=== PATIENT | male | born 1945 | race Caucasian/White ===

== ENCOUNTER 2016-06-05 11:25 | Inpatient (IN) | payer MEDICARE, OTHER ==
[2016-06-02 15:43] LABS: HEMATOCRIT 48.7 % (38.0-50.0); HEMOGLOBIN 16.5 gm/dL (13.0-16.0); MEAN CELL VOLUME 97.9 FL (83-96); MEAN CORPUSCULAR HEMOGLOBIN 33.2 PG (28-34); MEAN CORPUSCULAR HGB CONC 33.9 g/dL (30-36); MEAN PLATELET VOLUME 7.3 FL (6.5-11.5); RED BLOOD COUNT 4.97 X10e (3.90-5.60); RED CELL DISTRIBUTION WIDTH 12.4 % (11.0-15.5); WHITE BLOOD COUNT 1.5 X10e3 (4.0-10.5)
[2016-06-02 15:54] LABS: ALBUMIN SERUM 2.5 g/dL (3.5-5.0); ALKALINE PHOSPHATASE 74 U/L (32-92); ALT (SGPT) 47 U/L (10-40); AMYLASE 51 U/L (0-46); AST (SGOT) 28 U/L (10-42); BILIRUBIN,TOTAL 1.1 mg/dL (0.2-2.0); BLOOD UREA NITROGEN 33 mg/dL (9-23); CALCIUM SERUM 7.6 mg/dL (8.4-10.2); CARBON DIOXIDE 20 mmol/L (22-31); CHLORIDE 106 mmol/L (100-111); CPK (CREATINE PHOSPHOKINASE) 25 IU/L (36-174); GLOM FILT RATE Estimated ABOVE60 mL/min (>60); GLUCOSE FASTING 147 mg/dL (70-110); LIPASE 33 U/L (22-51); POTASSIUM 4.5 mmol/L (3.5-5.1); SODIUM 134 mmol/L (135-145)
[2016-06-03 02:00] LABS: URINE BILIRUBIN NEG (NEG); URINE BLOOD NEG (NEG); URINE GLUCOSE 300 MG/DL (NORM); URINE KETONE NEG (NEG); URINE LEUKOCYTE ESTERASE NEG (NEG); URINE NITRATE NEG (NEG); URINE PROTEIN 1+ (NEG); URINE UROBILINOGEN NORM (NORM)
[2016-06-03 02:03] LABS: URINE APPEARANCE SL CLOUDY; URINE COLOR YELLOW
[2016-06-03 02:11] LABS: URINE SQUAMOUS EPITHELIAL CELL FEW /[HPF]
[2016-06-03 02:12] LABS: CULTURE INDICATED? NO
[2016-06-03 03:57] LABS: HEMATOCRIT 45.1 % (38.0-50.0); HEMOGLOBIN 15.2 gm/dL (13.0-16.0); MEAN CELL VOLUME 98.5 FL (83-96); MEAN CORPUSCULAR HEMOGLOBIN 33.1 PG (28-34); MEAN CORPUSCULAR HGB CONC 33.6 g/dL (30-36); MEAN PLATELET VOLUME 7.5 FL (6.5-11.5); RED BLOOD COUNT 4.58 X10e (3.90-5.60); RED CELL DISTRIBUTION WIDTH 12.5 % (11.0-15.5); WHITE BLOOD COUNT 1.9 X10e3 (4.0-10.5)
[2016-06-03 04:09] LABS: ALBUMIN SERUM 2.4 g/dL (3.5-5.0); ALKALINE PHOSPHATASE 60 U/L (32-92); ALT (SGPT) 39 U/L (10-40); AST (SGOT) 22 U/L (10-42); BILIRUBIN,TOTAL 0.9 mg/dL (0.2-2.0); BLOOD UREA NITROGEN 31 mg/dL (9-23); BUN/CREATININE RATIO 34.44; CALCIUM SERUM 7.1 mg/dL (8.4-10.2); CARBON DIOXIDE 25 mmol/L (22-31); CHLORIDE 108 mmol/L (100-111); CREATININE SERUM 0.9 mg/dL (0.6-1.4); GLOM FILT RATE Estimated ABOVE60 mL/min (>60); GLUCOSE FASTING 151 mg/dL (70-110); POTASSIUM 4.6 mmol/L (3.5-5.1); PROTEIN TOTAL SERUM 4.6 g/dL (6.0-8.3); SODIUM 132 mmol/L (135-145)
[2016-06-04 06:54] LABS: HEMATOCRIT 42.6 % (38.0-50.0); HEMOGLOBIN 14.4 gm/dL (13.0-16.0); MEAN CELL VOLUME 98.2 FL (83-96); MEAN CORPUSCULAR HEMOGLOBIN 33.1 PG (28-34); MEAN CORPUSCULAR HGB CONC 33.8 g/dL (30-36); MEAN PLATELET VOLUME 7.5 FL (6.5-11.5); RED BLOOD COUNT 4.34 X10e (3.90-5.60); RED CELL DISTRIBUTION WIDTH 12.3 % (11.0-15.5); WHITE BLOOD COUNT 1.3 X10e3 (4.0-10.5)
[2016-06-04 07:38] LABS: BLOOD UREA NITROGEN 25 mg/dL (9-23); BUN/CREATININE RATIO 35.71; CALCIUM SERUM 7.3 mg/dL (8.4-10.2); CARBON DIOXIDE 23 mmol/L (22-31); CHLORIDE 109 mmol/L (100-111); CREATININE SERUM 0.7 mg/dL (0.6-1.4); GLOM FILT RATE Estimated ABOVE60 mL/min (>60); GLUCOSE FASTING 115 mg/dL (70-110); MAGNESIUM 1.8 mg/dL (1.6-3.0); POTASSIUM 4.1 mmol/L (3.5-5.1); SODIUM 137 mmol/L (135-145)
--- NOTE | ~2016-06-05 | CO ---
Unit #: [id number] #: [id number] Patient: MARYCHUY EDMONDS [id number] [address] [place], [place] [address] [id number] I MR#: [id number] NAME: MARYCHUY EDMONDS ROOM: 341 Age: 70 Sex: M Admission Date: 06/02/2016 : 1945 Attending Physician: Ryan Choi M.D. Consultation Date: 06/03/2016 CONSULTATION REPORT REASON FOR CONSULTATION Locally advanced pancreatic cancer, please evaluate. HISTORY OF PRESENT ILLNESS Mr. Margaret Edmonsd is a 70-year-old with a history of locally advanced pancreatic cancer, who is undergoing neoadjuvant chemotherapy with FOLFIRINOX prior to surgery. He had a second cycle of chemotherapy last week and tells me that for the last 4 or 5 days, he has been very weak and nauseous with several episodes of vomiting along with some diarrhea. He was seen in the office on 06/02/2016 and felt so weak and dehydrated, requested hospitalization. He received IV fluids in the office prior to his admission as a direct admit. Today, he tells me that he feels no better, continues to have watery diarrhea along with recurrent nausea and vomiting without significant relief with Zofran. Yesterday, he had no trouble swallowing, but today, he tells me that even swallowing Jell-O has been difficult. PAST MEDICAL HISTORY Hypertension, hyperlipidemia, locally advanced pancreatic cancer diagnosed on 03/29/2016, and he presents with painless jaundice. ERCP and stent were done followed by an EUS with biopsies. He was found to have an 18.7 x 16.0 cm mass in the head of the pancreas with loss of intervening planes between the mass and the portal vein and has since undergone 2 cycles of chemotherapy with FOLFIRINOX. Positive history of appendectomy at age 13, finger surgery on right index finger. FAMILY HISTORY Lung cancer in father. SOCIAL HISTORY Smokes a pack a day with a 20 pack year history of smoking. Single. He has one daughter with whom he does not keep in touch. Lives with his brother. REVIEW OF SYSTEMS 14-point review of systems taken. CONSTITUTIONAL: Fatigue and weakness. No appetite. EYES: Negative. EARS, NOSE, MOUTH AND THROAT: Negative. CARDIOVASCULAR: Negative. RESPIRATORY: Negative. GASTROINTESTINAL: Nausea, vomiting, diarrhea. MUSCULOSKELETAL: Weakness. ALLERGY/LYMPHATIC: Negative. Unit #: [id number] #: [id number] Patient: MARYCHUY EDMONDS SKIN: Negative. NEUROLOGIC: Negative. PSYCHIATRIC: Negative. PHYSICAL EXAMINATION GENERAL: He is an elderly man who looks tired and weak. He is awake, alert, and oriented x3, but is in moderate distress secondary to nausea and vomiting. VITAL SIGNS: Temperature 97.9, pulse rate is 60, respiratory rate is 18, blood pressure 141/73, pulse ox is 100% on room air. HEENT: Shows pupils are equal and reactive well to light. Mucous membranes are dry. NECK: Without adenopathy, JVD, or thyromegaly. CARDIOVASCULAR: First and second heart sounds are heard and are regular without murmurs, gallops, or rubs. LUNGS: Chest expansion is symmetric and bilaterally clear entry with normal breath sounds. ABDOMEN: Soft and nontender. Bowel sounds are active. No organomegaly. EXTREMITIES: Warm and good pulses. No edema, cyanosis, or clubbing. NEUROLOGIC: He is awake, alert, and oriented x3 without any focal findings. PSYCHIATRIC: Anxious and worried. SKIN: Negative. DIAGNOSTIC STUDIES LABORATORY RESULTS: CPK is 28. Troponin is less than 0.03. Urine culture is cloudy with leukocyte esterase being negative. CBC has a white count of 1.9, hemoglobin is 15.2, platelet counts 50,000. His complete metabolic panel shows a BUN of 31, creatinine is 0.9, albumin is 2.4. ASSESSMENT/PLAN Margaret Edmonds is a 70-year-old with a history of locally advanced pancreatic cancer, who has undergone 2 cycles of chemotherapy with FOLFIRINOX prior to surgery. He is admitted with nausea, vomiting, diarrhea, dehydration, and generalized weakness. In addition, he is pancytopenic with neutropenia and thrombocytopenia, likely from his recent chemotherapy. I had an extensive discussion with Mr. Edmonds who was reluctant to undergo further chemotherapy that he does require neoadjuvant chemotherapy to downsize this cancer before he can undergo a resection. Recommended switching his antiemetics and consultation with Dr. Jose A De Leon of GI to re-evaluate and possibly perform an upper endoscopy during this hospitalization. Discussed with Mr. Edmonds about starting him on Granix 480 mcg subcu once daily. We will discontinue if white count is more than 3500 with broad-spectrum antibiotics if he was to spike a fever. His thrombocytopenia will observed with transfusion support as necessary. He will also require replacement of his electrolytes. Thank you for allowing me to participate in his care and I will follow with you. Dictated by... Mello Raza/ambrocio TD: 06/04/2016 05:59 Unit #: [id number] #: [id number] Patient: MARYCHUY EDMONDS JOB #: [id number] CONSULTATION REPORT X Drew Escalera MD CONSULTATION REPORT
--- NOTE | ~2016-06-05 | CT2 ---
[facility] A Service of [facility] RADIOLOGY TEXT RESULTS PATIENT: MARYCHUY PARSONS LOCATION: C3A 341- : 46 UNIT #: [id number] AGE: [address]: Ryan Choi MD SEX: M ORDER DR: [id number] [facility] [address] [facility]. [place], [place] [address] [id number] I MR#: [id number] Acc #: [id number] NAME: MARYCHUY PARSONS : 1945 SEX: M STUDY DATE/TIME: 06/05/2016 15:58 UNIT: C3A PCU ROOM: 341 STUDY DESCRIPTION: CT Abd and Pelv W Cont Attending Physician: Ryan Choi M.D. Ordering Physician: Drew Escalera M.D. Primary Care Physician: Primary Care Physician No MEDICAL IMAGING REPORT This report is preliminary unless electronic signature is present EXAM CT of the abdomen and pelvis with IV contrast media HISTORY Nausea, vomiting and diarrhea for 3 days. Upper abdominal pain. TECHNIQUE Transaxial imaging of the abdomen and pelvis was obtained with IV contrast and compared directly to the patient's most recent scan of 03/27/2016. This CT examination was performed with one or more of the following radiation dose reduction techniques: automatic exposure control, adjustment of mA and/or kV according to patient size, and iterative reconstruction. FINDINGS Lung bases show some compressive atelectasis. The patient has developed perihepatic fluid. There is pneumobilia. The patient has a stent in the common duct. Gallbladder is decompressed. Spleen is of normal size. The adrenal gland on the right is normal. The left adrenal is not clearly seen. The right kidney appears normal and in normal position. 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 There is no hydronephrosis present. The patient has developed some small bowel wall thickening in the left upper quadrant. The patient has pronounced colon wall thickening involving the splenic flexure and descending colon. There is a small amount of free fluid in the right paracolic gutter and dependent pelvis. Bladder is unremarkable. CONCLUSION 1. Interim development of intraabdominal fluid. This is perihepatic, in the right paracolic gutter, and a small amount in the pelvis. 2. Interim placement of a biliary stent with pneumobilia and biliary STS. [facility] A Service of [facility] RADIOLOGY TEXT RESULTS PATIENT: MARYCHUY PARSONS LOCATION: A 341-01 : 46 UNIT #: [id number] AGE: [address]: Ryan Choi MD SEX: M ORDER DR: dilatation has improved significantly. Gallbladder distension has resolved. 3. 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 4. Thickened colon wall involving the splenic flexure and descending colon in its course. There are a few slightly thickened jejunal loops in the left upper quadrant as well likely reflecting colitis or enterocolitis. Dictated by... Jerod Coelho M.D. THIS IS AN ELECTRONICALLY VERIFIED REPORT Jerod Coelho M.D. at 06/08/2016 5:09 PM DONELL/wilma TD: 06/06/2016 06:56 JOB #: [id number] MEDICAL IMAGING REPORT Page 1 of 1 COPY
--- NOTE | ~2016-06-05 | EKG ---
PATIENT: MARYCHUY PARSONS UNIT #: [id number] Ventricular Rate: 83 BPM Atrial Rate: 83 BPM P-R Interval: 128 ms QRS Duration: 72 ms Q-T Interval: 386 ms QTC Calculation(Bezet): 453 ms P Casper: 22 degrees Calculated R Casper: -8 degrees Calculated T Casper: 51 degrees Diagnosis Line: Normal sinus rhythm with sinus arrhythmia Diagnosis Line: Normal ECG Diagnosis Line: When compared with ECG of 27-MAR-2016 10:25, Diagnosis Line: No significant change was found Diagnosis Line: Confirmed by SALVADOR BECKWITH MD ([id number]) on Diagnosis Line: 06/03/2016 11:25:57 AM INTERPRETING MD: TANG BHATIA
--- NOTE | ~2016-06-05 | CO ---
Unit #: [id number] #: [id number] Patient: MARYCHUY PARSONS [id number] [address] [address] [id number] I MR#: [id number] NAME: MARYCHUY PARSONS ROOM: 341 Age: 70 Sex: M Admission Date: 06/05/2016 : 1945 Attending Physician: Ryan Choi M.D. Primary Care Physician: No Primary Care Physician CONSULTATION REPORT REASON FOR CONSULTATION Urinary retention. HISTORY OF PRESENT ILLNESS The patient is a pleasant 70-year-old male with history of locally advanced pancreatic cancer, who is undergoing neoadjuvant chemotherapy. He was admitted with nausea, vomiting, diarrhea, and neutropenia. He is having urinary retention since his catheter was removed. He denies difficulty urinating before he was in the hospital. He denies previous history of urinary problems. He denies hematuria. He was started on Flomax this morning. He is currently being in and out catheterized. PAST MEDICAL HISTORY 1. Locally advanced pancreatic cancer, currently undergoing neoadjuvant chemotherapy. 2. Hypertension. 3. Hyperlipidemia. SOCIAL HISTORY Positive for tobacco. He lives with his brother. FAMILY HISTORY Positive for lung cancer. REVIEW OF SYSTEMS Positive for weak stream. Positive for limited mobility. Negative for hematuria. Negative for dysuria. Positive for urinary retention. PHYSICAL EXAMINATION GENERAL: Reveals a somewhat chronically ill appearing white male in no acute distress. VITAL SIGNS: Temperature 98, blood pressure 119/71, pulse 110, respirations 20. HEENT: Normocephalic and atraumatic. LUNGS: Patient is breathing comfortably. ABDOMEN: Soft, nontender, nondistended. GENITOURINARY: His penis is normal. His meatus is normal. RECTAL: His prostate and digital rectal exam is within normal limits. It is not significantly enlarged. There are no nodules. DIAGNOSTIC STUDIES LABORATORY: Creatinine 0.9. White blood cell count 9.9, hemoglobin 14.9. Urinalysis is nitrite negative, leukocyte esterase negative, and negative for blood. Unit #: [id number] #: [id number] Patient: MARYCHUY PARSONS ASSESSMENT AND PLAN Urinary retention: This is likely multifactorial and certainly his overall weakened state and immobility plays a role in this. I agree with the plan for Flomax. I would anchor a Avila catheter at this time and will plan a voiding trial as an outpatient in about one week. Dictated by... Mello Bauer/ashutosh TD: 06/09/2016 16:29 JOB #: [id number] CONSULTATION REPORT Page 1 of 1 X Get Wilcox MD X CONSULTATION REPORT
--- NOTE | ~2016-06-05 | DS ---
Unit #: [id number] #: [id number] Patient: MARYCHUY PARSONS [id number] [address] [address] [id number] I MR#: [id number] NAME: MARYCHUY PARSONS ROOM: 341 Age: 70 Sex: M Admission Date: 06/05/2016 : 1945 Discharge Date: 06/12/2016 Attending Physician: Ryan Choi M.D. Primary Care Physician: Harriett Primary Care Physician DISCHARGE SUMMARY CONSULTANTS Dr. Ecsalera. Dr. Jose A De Leon. Dr. Get Wilcox. ADMITTING DIAGNOSES 1. Dehydration. 2. History of pancreatic cancer on chemotherapy with neutropenia. 3. Hypertension. 4. Hyperlipidemia. 5. Chronic obstructive pulmonary disease. 6. Urinary retention, status post Avila catheter placement. HISTORY OF PRESENT ILLNESS The patient is a 70-year-old male with a past medical history of pancreatic cancer, hypertension, hyperlipidemia, chronic obstructive pulmonary disease and was admitted directly from Dr. Escalera's office on the . He was started on chemotherapy and developed nausea, vomiting and not feeling well. He was admitted as a direct admit. HOSPITAL COURSE In the hospital he was started on IV fluids. Initial workup showed him having neutropenia. He was started on (1) colony stimulating factor. His counts improved. Initially he was started on empiric antimicrobials because of neutropenia. Slowly his antibiotics were stopped. He had a urinary retention. Urology was consulted. They placed a Avila catheter and started him on Flomax. Today urology recommended to remove the Avila catheter and try a voiding trial. We are trying to attempt that. The patient was seen by physical therapy and occupational therapy. They recommended the patient requires rehab placement. I spoke at length with the patient and his brother. They do not want him to go to rehab. The patient does not want to go to rehab. He wants to go home. He says he has enough help at home and he wants to go home and follow up. Will discharge him home. We have requested him to follow up with oncology and urology as an outpatient. PHYSICAL EXAMINATION VITALS: On the day of discharge, temperature 98, pulse rate 107, respiratory rate 19, blood pressure 144/86. GENERAL: The patient is alert, oriented times three, lying in the bed in no acute distress. HEENT: Normocephalic, atraumatic. No icterus. Pupils equally round and reactive to light and accommodation. Extraocular movements intact. NECK: Supple. No jugular venous distension. Unit #: [id number] #: [id number] Patient: MARYCHUY PARSONS HEART: S1 and S2. Regular rate and rhythm. CHEST: Bilaterally equal entry. Clear to auscultation. ABDOMEN: Obese, soft, nontender. EXTREMITIES: No edema. Normal pulses. DISCHARGE MEDICATIONS 1. Flomax 0.4 mg daily. 2. Spiriva 18 mcg inhalation daily. 3. Lomotil 5 mg p.o. q.4 h. p.r.n. diarrhea. 4. Zofran 4 mg q.4 h. p.r.n. nausea and vomiting 5. Creon 12 mg p.o. t.i.d. 6. Lisinopril 20 mg daily. 7. Hydrocodone/Tylenol 7.5/325 mg 1 tablet p.o. daily. DISPOSITION He will be discharged home. Total time spent in his care 35 minutes. Dictated by... Mello Fermin TD: 06/12/2016 15:37 JOB #: [id number] DISCHARGE SUMMARY Page 1 of 1 X X DISCHARGE SUMMARY
--- NOTE | ~2016-06-05 | HP ---
Unit #: [id number] #: [id number] Patient: MARYCHUY PARSONS [id number] [address] [address] [id number] I MR#: [id number] NAME: MARYCHUY PARSONS ROOM: 341 Age: 70 Sex: M Admission Date: 06/02/2016 : 1945 Attending Physician: Debi Holley M.D. Primary Care Physician: Primary Care Physician No HISTORY AND PHYSICAL CHIEF COMPLAINT Dehydration. HISTORY OF PRESENT ILLNESS The patient is a 70-year-old male with past medical history of pancreatic cancer, hypertension, hyperlipidemia, COPD, who was a direct admit from Dr. Escalera's office for evaluation of the above. The patient states that he had chemotherapy on 05/26/2016. He states that the following day he started with nausea and diarrhea. He states that he has had no vomiting within the past 24 hours. He has had about 4 to 5 bouts of nonbloody diarrhea within the past 24 hours. He states that his abdomen is "sore" from not eating. He also has noted decrease in his urine output. He was seen in Dr. Escalera's office today and sent to [facility] for admission and further treatment. PAST MEDICAL HISTORY 1. Admission to [facility] 03/28/2016 for biliary obstruction concerning for possible stricture versus mass. He underwent EGD and ERCP during that admission. Pathology report from common bile duct brushings showed atypical cells. He is currently receiving chemotherapy for pancreatic cancer. This was his second treatment (05/26/2016) Apparently, 14 treatments are planned. 2. Hypertension. 3. Hyperlipidemia. 4. History of myocardial infarction. The patient denies ever being hospitalized for the myocardial infarction. He has never had a cardiac catheterization. 5. COPD, not on home oxygen. PAST SURGICAL HISTORY 1. Port placement. 2. EGD. 3. ERCP. 4. Appendectomy. ALLERGIES No known allergies. HOME MEDICATIONS Include: 1. Meloxicam 15 mg daily. 2. Lisinopril 20 mg daily. 3. Ventolin one puff inhaled q.4 h. p.r.n. Unit #: [id number] #: [id number] Patient: MARYCHUY PARSONS 4. Spiriva inhaled daily. SOCIAL HISTORY The patient smokes cigars. He lives alone. He reports occasional alcohol use. 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 FAMILY HISTORY Notable for his father having liver and lung cancer. REVIEW OF SYSTEMS A complete review of systems is negative except as indicated in the HPI. The patient states that he has lost about 15 pounds over the past week. PHYSICAL EXAMINATION VITAL SIGNS: Temperature 97.6, pulse 79, respirations 18, blood pressure 141/86, oxygen saturation 100% on room air. GENERAL: The patient is a male who is awake and alert in no acute distress. HEENT: Head is atraumatic. Mucous membranes are dry. NECK: Supple. Trachea is midline. LUNGS: Clear to auscultation bilaterally with no increased work of breathing. HEART: Regular rate and rhythm. ABDOMEN: Soft, nontender. Bowel sounds present in all four quadrants. EXTREMITIES: Nontender with no pedal edema. NEUROLOGIC: Patient is awake and alert. He follows commands. PSYCHIATRIC: Mood and affect are normal. Patient is cooperative. SKIN OF EXAMINED AREAS: Warm and dry. DIAGNOSTIC STUDIES Pending. ASSESSMENT The patient is a 70-year-old male with: 1. Dehydration. 2. Diarrhea. 3. History of pancreatic cancer with second chemotherapy treatment being 05/26/2016. He is followed by Dr. Escalera. 4. Hypertension. 5. Hyperlipidemia. 6. Chronic obstructive pulmonary disease. 7. Tobacco abuse. PLAN 1. Admit for observation to intermediate level. 2. Advance to clear liquids as tolerated. 3. Normal saline at 125 mL per hour. 4. Check EKG and cardiac enzymes. 5. Check labs. 6. Urinalysis. 7. Stool studies including ova and parasites, C difficile, culture and sensitivity. 8. P.r.n. Zofran. 9. Repeat labs in the morning. 10. SCDs for DVT prophylaxis. 11. Consult Dr. Escalera regarding pancreatic cancer. 12. Additional workup and consultants based on above. Unit #: [id number] #: [id number] Patient: MARYCHUY PARSONS Dictated by Debi Holley M.D. Massimo TD: 06/02/2016 16:58 JOB #: [id number] HISTORY AND PHYSICAL X Debi Holley MD HISTORY AND PHYSICAL
[2016-06-05 07:00] LABS: HEMOGLOBIN 13.5 gm/dL (13.0-16.0); MEAN CELL VOLUME 97.6 FL (83-96); MEAN CORPUSCULAR HEMOGLOBIN 32.9 PG (28-34); MEAN CORPUSCULAR HGB CONC 33.7 g/dL (30-36); MEAN PLATELET VOLUME 8.6 FL (6.5-11.5); RED BLOOD COUNT 4.1 X10e (3.90-5.60); RED CELL DISTRIBUTION WIDTH 12.4 % (11.0-15.5); WHITE BLOOD COUNT 0.9 X10e3 (4.0-10.5)
[2016-06-05 07:31] LABS: BLOOD UREA NITROGEN 23 mg/dL (9-23); BUN/CREATININE RATIO 32.85; CALCIUM SERUM 7.3 mg/dL (8.4-10.2); CARBON DIOXIDE 22 mmol/L (22-31); CHLORIDE 109 mmol/L (100-111); CREATININE SERUM 0.7 mg/dL (0.6-1.4); GLOM FILT RATE Estimated ABOVE60 mL/min (>60); GLUCOSE FASTING 107 mg/dL (70-110); MAGNESIUM 2.2 mg/dL (1.6-3.0); POTASSIUM 3.8 mmol/L (3.5-5.1); SODIUM 134 mmol/L (135-145)
[~2016-06-05 11:25] MED LIST: ALBUTEROL17 GM INH; LISINOPRIL-HCTZ1 T14 PO; LISINOPRIL20 MG PO; MELOXICAM15 MG PO; SPIRIVA18 MCG INH
[2016-06-06 07:50] LABS: HEMATOCRIT 39.1 % (38.0-50.0); HEMOGLOBIN 13.2 gm/dL (13.0-16.0); MEAN CELL VOLUME 98.4 FL (83-96); MEAN CORPUSCULAR HEMOGLOBIN 33.2 PG (28-34); MEAN CORPUSCULAR HGB CONC 33.7 g/dL (30-36); MEAN PLATELET VOLUME 8.2 FL (6.5-11.5); RED BLOOD COUNT 3.98 X10e (3.90-5.60); RED CELL DISTRIBUTION WIDTH 12.5 % (11.0-15.5); WHITE BLOOD COUNT 0.8 X10e3 (4.0-10.5)
[2016-06-07 09:33] LABS: HEMATOCRIT 39.8 % (38.0-50.0); HEMOGLOBIN 13.4 gm/dL (13.0-16.0); MEAN CELL VOLUME 98.4 FL (83-96); MEAN CORPUSCULAR HEMOGLOBIN 33.1 PG (28-34); MEAN CORPUSCULAR HGB CONC 33.7 g/dL (30-36); RED BLOOD COUNT 4.05 X10e (3.90-5.60); RED CELL DISTRIBUTION WIDTH 12.5 % (11.0-15.5)
[2016-06-07 09:54] LABS: ALBUMIN SERUM 1.7 g/dL (3.5-5.0); ALKALINE PHOSPHATASE 48 U/L (32-92); ALT (SGPT) 20 U/L (10-40); AST (SGOT) 15 U/L (10-42); BILIRUBIN,TOTAL 0.7 mg/dL (0.2-2.0); BLOOD UREA NITROGEN 25 mg/dL (9-23); BUN/CREATININE RATIO 31.25; CALCIUM SERUM 6.9 mg/dL (8.4-10.2); CARBON DIOXIDE 21 mmol/L (22-31); CHLORIDE 114 mmol/L (100-111); CREATININE SERUM 0.8 mg/dL (0.6-1.4); GLOM FILT RATE Estimated ABOVE60 mL/min (>60); GLUCOSE FASTING 102 mg/dL (70-110); POTASSIUM 3.3 mmol/L (3.5-5.1); PROTEIN TOTAL SERUM 4.6 g/dL (6.0-8.3); SODIUM 138 mmol/L (135-145)
[2016-06-08 08:46] LABS: HEMATOCRIT 40.4 % (38.0-50.0); HEMOGLOBIN 13.5 gm/dL (13.0-16.0); MEAN CELL VOLUME 99.7 FL (83-96); MEAN CORPUSCULAR HEMOGLOBIN 33.2 PG (28-34); MEAN CORPUSCULAR HGB CONC 33.3 g/dL (30-36); MEAN PLATELET VOLUME 8.4 FL (6.5-11.5); RED BLOOD COUNT 4.05 X10e (3.90-5.60); RED CELL DISTRIBUTION WIDTH 12.6 % (11.0-15.5); WHITE BLOOD COUNT 3.8 X10e3 (4.0-10.5)
[2016-06-08 09:14] LABS: BLOOD UREA NITROGEN 25 mg/dL (9-23); BUN/CREATININE RATIO 31.25; CALCIUM SERUM 7.2 mg/dL (8.4-10.2); CARBON DIOXIDE 21 mmol/L (22-31); CHLORIDE 115 mmol/L (100-111); CREATININE SERUM 0.8 mg/dL (0.6-1.4); GLOM FILT RATE Estimated ABOVE60 mL/min (>60); GLUCOSE FASTING 87 mg/dL (70-110); POTASSIUM 3.5 mmol/L (3.5-5.1); SODIUM 141 mmol/L (135-145)
[2016-06-09 05:47] LABS: HEMATOCRIT 45.1 % (38.0-50.0); HEMOGLOBIN 14.9 gm/dL (13.0-16.0); MEAN CELL VOLUME 100.7 FL (83-96); MEAN CORPUSCULAR HEMOGLOBIN 33.4 PG (28-34); MEAN CORPUSCULAR HGB CONC 33.1 g/dL (30-36); MEAN PLATELET VOLUME 8.7 FL (6.5-11.5); RED BLOOD COUNT 4.48 X10e (3.90-5.60); RED CELL DISTRIBUTION WIDTH 12.8 % (11.0-15.5)
[2016-06-09 05:48] LABS: WHITE BLOOD COUNT 9.9 X10e3 (4.0-10.5)
[2016-06-09 05:58] LABS: BLOOD UREA NITROGEN 31 mg/dL (9-23); BUN/CREATININE RATIO 34.44; CALCIUM SERUM 7.4 mg/dL (8.4-10.2); CARBON DIOXIDE 18 mmol/L (22-31); CHLORIDE 111 mmol/L (100-111); CREATININE SERUM 0.9 mg/dL (0.6-1.4); GLOM FILT RATE Estimated ABOVE60 mL/min (>60); GLUCOSE FASTING 107 mg/dL (70-110); POTASSIUM 3.8 mmol/L (3.5-5.1); SODIUM 139 mmol/L (135-145)
[2016-06-10 10:21] LABS: HEMATOCRIT 40.9 % (38.0-50.0); HEMOGLOBIN 13.4 gm/dL (13.0-16.0); MEAN CORPUSCULAR HEMOGLOBIN 33.1 PG (28-34); MEAN CORPUSCULAR HGB CONC 32.7 g/dL (30-36); MEAN PLATELET VOLUME 8.5 FL (6.5-11.5); RED BLOOD COUNT 4.05 X10e (3.90-5.60); RED CELL DISTRIBUTION WIDTH 13.1 % (11.0-15.5); WHITE BLOOD COUNT 14.3 X10e3 (4.0-10.5)
[2016-06-10 10:55] LABS: BLOOD UREA NITROGEN 34 mg/dL (9-23); CALCIUM SERUM 7.4 mg/dL (8.4-10.2); CARBON DIOXIDE 15 mmol/L (22-31); CHLORIDE 116 mmol/L (100-111); CREATININE SERUM 0.8 mg/dL (0.6-1.4); GLOM FILT RATE Estimated ABOVE60 mL/min (>60); GLUCOSE FASTING 114 mg/dL (70-110); SODIUM 139 mmol/L (135-145)
[2016-06-11 09:16] LABS: BASOPHIL% 0.3 % (0-2.5); EOSINOPHIL% 0.1 % (0.0-7.0); HEMATOCRIT 39.9 % (38.0-50.0); HEMOGLOBIN 13.1 gm/dL (13.0-16.0); LYMPHOCYTE# 1.9 X10e3 (1.0-3.5); LYMPHOCYTE% 12.2 % (17.0-45.0); MEAN CELL VOLUME 100.4 FL (83-96); MEAN CORPUSCULAR HGB CONC 32.8 g/dL (30-36); MEAN PLATELET VOLUME 8.8 FL (6.5-11.5); MONOCYTE% 6.7 % (3.0-12.0); NEUTROPHIL# 12.7 X10e3 (1.5-7.1); NEUTROPHIL% 80.7 % (40-75); RED BLOOD COUNT 3.98 X10e (3.90-5.60); RED CELL DISTRIBUTION WIDTH 12.9 % (11.0-15.5); WHITE BLOOD COUNT 15.7 X10e3 (4.0-10.5)
[2016-06-11 09:20] LABS: PLATELET COUNT 93 X10e3 (140-420)
[2016-06-11 09:21] LABS: DIFF IND YES
[2016-06-11 10:09] LABS: ANISOCYTOSIS SL; NUCLEATED RED BLOOD CELL 3 /100 (0); PLATELET ESTIMATE DECREASED (NORMAL); POLYCHROMASIA SL
[2016-06-11 10:13] LABS: BUN/CREATININE RATIO 38.75; CALCIUM SERUM 7.4 mg/dL (8.4-10.2); CREATININE SERUM 0.8 mg/dL (0.6-1.4); GLOM FILT RATE Estimated 91.2 mL/min (>60); POTASSIUM 3.3 mmol/L (3.5-5.1)
[2016-06-12 08:42] LABS: BUN/CREATININE RATIO 32.5; CALCIUM SERUM 7.4 mg/dL (8.4-10.2); CREATININE SERUM 0.8 mg/dL (0.6-1.4); GLOM FILT RATE Estimated 91.2 mL/min (>60); POTASSIUM 3.6 mmol/L (3.5-5.1)
[2016-06-12] MEDS ORDERED: FLOMAX0.4 M1 PO (14:06)
[2016-06-12] MEDS ORDERED: LOMOTIL WHITE2.5 MG PO (14:07)
[2016-06-12] MEDS ORDERED: LOMOTIL WHITE2.5 M1 PO (14:07)
[2016-06-12] MEDS ORDERED: CREON DR 12,001 EAC1 PO (14:08)
[2016-06-12] MEDS ORDERED: ZOFRAN PO (14:08)
[2016-06-12] MEDS ORDERED: HYDROCODON-ACE1 EAC9 PO (14:09)
== END 2016-06-12 17:17 | disposition home health service (06) | DRG 809 ==
LOC: C3A PCU 11:25
PROVIDERS: Family Medicine; Internal Medicine; Internal Medicine Hematology & Oncology
PROC: 05H533Z Insertion of Infusion Device into Right Subclavian Vein, Percutaneous Approach (ICD-10-PCS; principal; 2016-06-05)
PROC: B546ZZA Ultrasonography of Right Subclavian Vein, Guidance (ICD-10-PCS; 2016-06-05)
DX: D70.1 Agranulocytosis secondary to cancer chemotherapy (principal); C25.9 Malignant neoplasm of pancreas, unspecified; D69.59 Other secondary thrombocytopenia; J44.9 Chronic obstructive pulmonary disease, unspecified; I10 Essential (primary) hypertension; K92.81 Gastrointestinal mucositis (ulcerative); E86.0 Dehydration; E78.5 Hyperlipidemia, unspecified; F17.210 Nicotine dependence, cigarettes, uncomplicated; T45.1X5A Adverse effect of antineoplastic and immunosuppressive drugs, initial encounter; R33.9 Retention of urine, unspecified; E87.6 Hypokalemia
CPT/HCPCS: 74177; 80048; 80053; 81003; 82150; 82550; 82705; 83690; 83735; 84484; 85025; 85027; 87040; 87045; 87177; 87209; 87427; 87493; 87899; 93005; 94640; 94664; 94760; 97110; 97116; 97162; 97530; G8978-GP; G8979-GP; G8980-GP; J0692; J1170; J1200; J1447; J1642; J1650; J2270; J2405; J2550; J2765; J3475; Q9967

== ENCOUNTER → 2016-07-06 | Outpatient (CLI) | payer MEDICARE, OTHER ==
[~2016-07-06] MED LIST changes: +CREON DR 12,001 EAC1 PO; +FLOMAX0.4 M1 PO; +HYDROCODON-ACE1 EAC9 PO; +LOMOTIL WHITE2.5 M1 PO; +LOMOTIL WHITE2.5 MG PO; +ZOFRAN PO
--- NOTE | ~2016-07-06 | MR2 ---
[facility] A Service of [facility] RADIOLOGY TEXT RESULTS PATIENT: MARYCHUY PARSONS LOCATION: CMRI : 46 UNIT #: [id number] AGE: [address]: Drew Escalera MD SEX: M ORDER DR: [id number] [facility] [address] [facility]. [place], [place] [address] [id number] MR#: [id number] Acc #: [id number] NAME: MARYCHUY PARSONS : 1945 SEX: M STUDY DATE/TIME: 07/06/2016 7:12 UNIT: CMRI ROOM: STUDY DESCRIPTION: MR Abdomen WWo Cont Attending Physician: Drew Escalera M.D. Referring Physician: Drew Escalera M.D. Ordering Physician: Drew Escalera M.D. Primary Care Physician: No Primary Care Physician MRI CENTER REPORT This report is preliminary unless electronic signature is present. EXAM MRI abdomen. INDICATION [place] neoplasm of the pancreatic head. Nausea and vomiting. Dehydration. TECHNIQUE Multiplanar MRI of the abdomen with and without contrast (17 mL MultiHance IV contrast). COMPARISON CT abdomen and pelvis dated 06/05/2016, ERCP dated 03/29/[address] abdomen dated 03/27/2016. FINDINGS The patient has developed a moderate left and small right pleural effusion. This results in atelectasis in both lung bases. There is a moderate volume of ascites which has increased from the prior study. The liver enhances normally. Hepatic vasculature is patent. No hepatic mass. No intrahepatic or extrahepatic biliary dilatation. There is no discrete pancreatic mass. There is no abnormal enhancement associated with the common bile duct. There is atrophy of the pancreas, however, no discrete pancreatic mass. The spleen, adrenal glands, and right kidney are normal. Patient has a left pelvic kidney. IMPRESSION 1. No discrete mass or lesion is identified in the pancreatic head or associated with the distal common bile duct. Overall appearance of this area is unchanged from the prior CT scan. [facility] A Service of [facility] RADIOLOGY TEXT RESULTS PATIENT: MARYCHUY PARSONS LOCATION: [facility] : 46 UNIT #: [id number] AGE: [address]: Drew Escalera MD SEX: M ORDER DR: 2. No convincing evidence of metastatic disease. 3. Development of moderate left and small right pleural effusions. Increased volume of ascites in the abdomen. Dictated by... Kristopher Barber M.D. THIS IS AN ELECTRONICALLY VERIFIED REPORT Kristopher Barber M.D. at 07/07/2016 12:09 PM ALESSIA/greg TD: 07/07/2016 11:17 JOB #: [id number] MRI CENTER REPORT Page 1 of 1 COPY
== END | disposition home or self-care (01) ==
LOC: CMRI 06:20
DX: C25.0 Malignant neoplasm of head of pancreas (principal); M62.81 Muscle weakness (generalized); R11.2 Nausea with vomiting, unspecified; E86.0 Dehydration; J90 Pleural effusion, not elsewhere classified; R18.8 Other ascites
CPT/HCPCS: 74183; A9577

== ENCOUNTER → 2016-10-02 | Outpatient (CLI) | payer MEDICARE, OTHER ==
--- NOTE | ~2016-10-02 | CT2 ---
[facility] A Service of [facility] RADIOLOGY TEXT RESULTS PATIENT: MARYCHUY PARSONS LOCATION: [facility]AT : 47 UNIT #: [id number] AGE: [address]: Drew Escalera MD SEX: M ORDER DR: [id number] [facility] [address] [place], [place] [address] [id number] O MR#: [id number] Acc #: [id number] NAME: MARYCHUY PARSONS : 1945 SEX: M STUDY DATE/TIME: 10/02/2016 9:20 UNIT: [facility] ROOM: STUDY DESCRIPTION: CT Abd and Pelv W Cont Attending Physician: Drew Escalera M.D. Referring Physician: Drew Escalera M.D. Ordering Physician: Drew Escalera M.D. Primary Care Physician: [facility] IMAGING REPORT This report is preliminary unless electronic signature is present EXAM CT abdomen and pelvis 10/02 INDICATIONS Pancreatic cancer. Observation for malignant neoplasm. Lower abdominal pain since pancreas surgery 08/11/2016. TECHNIQUE Axial images were obtained through the abdomen and pelvis following oral and IV contrast administration. Multiplanar reformats were obtained. Comparison is made with 08/20/2016. The CT exam was performed with one or more of the following radiation dose reduction techniques: automatic exposure control, adjustment of mA and/or kV according to patient size, and iterative reconstruction. FINDINGS ABDOMEN: The lung bases are clear. Pleural effusions have resolved. Patient is status post Whipple. The patient's pancreatic stent has migrated into the duodenum. No pancreatic ductal dilatation is seen. There is a fluid and gas collection along the lesser curvature of the stomach adjacent to the staple line in the gastrohepatic ligament. It measures roughly 4.3 x 2.1 x 2.7 cm and is concerning for a small abscess. This is not amenable to percutaneous drainage. There is pneumobilia as expected. There is thickening of the proximal half of the transverse colon in the hepatic flexure concerning for segmental colitis. No bowel obstruction is seen. There is no extraluminal or oral contrast. There is a trace amount of free fluid. The patient has a left-side pelvic kidney. There are a few small lymph nodes in the gastrohepatic ligament, but none are pathologically enlarged. [facility] [place] A Service of [facility] RADIOLOGY TEXT RESULTS PATIENT: MARYCHUY PARSONS LOCATION: [facility] : 46 UNIT #: [id number] AGE: [address]: Drew Escalera MD SEX: M ORDER DR: PELVIS: Urinary bladder is decompressed but grossly normal. The lower GI tract is unremarkable. No adenopathy is seen. There are bilateral L5 pars defects with grade 1 spondylolisthesis at L5-S1. There are no suspicious osseous lesions in the abdomen or pelvis. IMPRESSION 1. No evidence for metastatic disease in the abdomen or pelvis 2. Whipple procedure. Patient's pancreatic stent has migrated into the duodenum. 3. There is a small fluid and gas collection in the gastrohepatic ligament measuring about 4.3 x 2.1 x 2.7 cm. This is likely a small abscess. It abuts the lesser curvature of the stomach near a staple line. This does not contain any oral contrast. It is not amendable to percutaneous drainage. 4. Mild wall thickening in the proximal half of the transverse colon and in the hepatic flexure. This may reflect some mild segmental colitis. This is near the operative bed. 5. Pneumobilia as expected. No evidence for biliary obstruction. No pancreatic ductal dilatation. 6. Trace amount of free fluid in the abdomen. Dictated by... Tomy Mahmood Jr., M.D. THIS IS AN ELECTRONICALLY VERIFIED REPORT Tomy Mahmood Jr., M.D. at 10/05/2016 9:24 AM ROSA/immanuel TD: 10/05/2016 08:14 JOB #: [id number] MEDICAL IMAGING REPORT Page 1 of 1 COPY
[2016-10-02 11:26] LABS: POC - CREATININE 0.82 mg/dL (0.64-1.27); POC - GFR >60.0 mL/min (>60)
== END | disposition home or self-care (01) ==
LOC: CCAT 07:38
PROVIDERS: Internal Medicine Hematology & Oncology
DX: C25.0 Malignant neoplasm of head of pancreas (principal); M62.81 Muscle weakness (generalized); R11.2 Nausea with vomiting, unspecified; E86.0 Dehydration; T85.528A Displacement of other gastrointestinal prosthetic devices, implants and grafts, initial encounter; K63.89 Other specified diseases of intestine; K83.8 Other specified diseases of biliary tract
CPT/HCPCS: 74177; 82565; Q9967